=== PATIENT | female | born 1990 | race Caucasian/White ===

== ENCOUNTER 2017-05-01 18:39 | Inpatient (IN) ==
[2017-05-01] MEDS ORDERED: NS 1,000 ML ONE (19:06)
--- NOTE | 2017-05-01 19:55 | Diag Imaging Result Doc PS360 ---
HEAD W/O CONTRAST - 05/01/2017 INDICATION: loc TECHNIQUE: A CT dose reduction protocol was used. COMPARISON: None FINDINGS: The ventricles and sulci are normal in size and contour. No intracranial mass or hemorrhage. The skull is intact. The sinuses mastoids and middle ears are clear. There is excessive patient motion artifact. IMPRESSION: Negative exam. Electronically signed by Porter Malin 05/01/2017 7:52 PM
[2017-05-01] MEDS ORDERED: ROMAZICON IV ONE (19:56)
[2017-05-01] MEDS ORDERED: NS 1,000 ML IV ONE (20:17)
[2017-05-01 20:32] LABS: BLOOD TYPE ARTERIAL; SAMPLE BLOOD
[2017-05-01 20:33] LABS: BE -2.9 mmoll (-3.0-3.0); DRAW SITE R BRACHIAL; METHB 1.3 % (0.0-1.5); O2(CT) 18.6 mL/dL (15.0-23.0); PCO2(98.6) 38 mmHg (35-45); PO2(98.6) 442 mmHg (60-100); SAO2 100.3 % (95.0-100.0); THB 12.7 g/dL (11.5-17.4); pH(98.6) 7.37 (7.35-7.45)
[2017-05-01 20:35] LABS: ALLEN TEST NO; MODALITY AMBU BAG
[2017-05-01 20:49] LABS: UR AMPHETAMINES QUAL NONE DETECTED (NONE DETECT); UR BARBITUATES QUAL NONE DETECTED (NONE DETECT); UR BENZODIAZEPIN QUAL NONE DETECTED (NONE DETECT); UR CANNABINOIDS QUAL NONE DETECTED (NONE DETECT); UR COCAINE QUAL NONE DETECTED (NONE DETECT); UR MDMA QUAL NONE DETECTED (NONE DETECT); UR METHADONE QUAL NONE DETECTED (NONE DETECT); UR METHAMPHETAMINE QUAL PRESUMPTIVE POSITIVE (NONE DETECT); UR OPIATES QUAL NONE DETECTED (NONE DETECT); UR OXYCODONE QUAL NONE DETECTED (NONE DETECT); UR PCP QUAL NONE DETECTED (NONE DETECT); UR TCA QUAL NONE DETECTED (NONE DETECT)
[2017-05-01 21:31] LABS: HEMATOCRIT 37.5 % (37.0-47.0); HEMOGLOBIN 12.6 g/dL (12.0-16.0); MANUAL DIFF NEEDED? NO; MCHC 33.6 g/dL (33-37); MCV 92.4 FL (81-99); RBC 4.06 XMIL (4.2-5.4)
[2017-05-01 21:32] LABS: BASO% 0.2 % (0.0-0.8); EOS# 0.02 X1000 (0.0-0.7); EOS% 0.2 % (0.0-10.0); LYMPH# 3.11 X1000 (1.2-3.4); LYMPH% 36.1 % (20.5-51.1); MONO% 5.8 % (1.7-9.3); MPV 10.5 FL (7.4-10.4); NEUT% 57.5 % (42.2-75.2); PLT 272 X1000 (130-400)
[2017-05-01 21:33] LABS: AGAP 17; BUN 10 mg/dL (8-22); CHLORIDE 97 mmol/L (98-107); COSMO 267; POTASSIUM 3.4 mmol/L (3.5-5.1); SODIUM 134 mmol/L (136-145); TCO2 20 mmol/L (25-35)
[2017-05-01 21:34] LABS: ALKALINE PHOSPHATASE 51 U/L (32-104); GOT 14 U/L (10-30); GPT 8 U/L (10-36)
[2017-05-01 21:39] LABS: PTT PL 20.7 Seconds (22.6-43.9)
[2017-05-01 22:02] LABS: BE -7.4 mmoll (-3.0-3.0); BLOOD TYPE ARTERIAL; DRAW SITE R BRACHIAL; METHB 1.5 % (0.0-1.5); O2(CT) 18.7 mL/dL (15.0-23.0); PCO2(98.6) 31 mmHg (35-45); PO2(98.6) 478 mmHg (60-100); SAMPLE BLOOD; SAO2 100.1 % (95.0-100.0); SRATE 20 BPM; THB 12.7 g/dL (11.5-17.4); pH(98.6) 7.35 (7.35-7.45)
[2017-05-01 22:05] LABS: ALLEN TEST NO; MODALITY BI PAP
[2017-05-02] MEDS ORDERED: ZOFRAN IV PRN (00:21)
[2017-05-02] MEDS ORDERED: ATIVAN PO PRN (08:47)
--- NOTE | 2017-05-02 11:00 | Diag Imaging Result Doc PS360 ---
CHEST-2 VIEWS - 05/02/2017 INDICATION: hypoxia TECHNIQUE: COMPARISON: None FINDINGS: The lungs are normally expanded and clear. Heart size and mediastinal contours are normal. No pneumothorax or pleural effusion. IMPRESSION: Negative exam. Electronically signed by Porter Malin 05/02/2017 10:58 AM
--- NOTE | 2017-05-02 11:01 | Diag Imaging Result Doc PS360 ---
FOOT COMPLETE RIGHT - 05/02/2017 INDICATION: c/o pain in top R foot after fall TECHNIQUE: Three views COMPARISON: FINDINGS: There are minimally displaced fractures of the proximal shafts of the second, third, and fourth metatarsals. No dislocations. Joint spaces are clear. IMPRESSION: Fractures of the second, third, and fourth metatarsals proximally. Electronically signed by Porter Malin 05/02/2017 10:59 AM
[2017-05-02 11:41] VITALS: BP 119/75
--- NOTE | 2017-05-02 17:02 | HISTORY AND PHYSICAL ---
CHIEF COMPLAINT: Unresponsive. HISTORY OF PRESENT ILLNESS: This is a 27-year-old female who presented to the emergency room via EMS after being found unresponsive at [facility]. The patient is unresponsive on arrival. In fact, she is being assisted with ventilations, so history is taken from the EMS report. Evidently she was working out with a friend and she stated that she felt weird and went outside and reportedly dropped to her knees and passed out. We have no further details as the man she was with left before EMS arrived. We are unsure of past medical history or any further events. In the emergency room she was given Narcan as well as Romazicon with no response. Blood pressures was 76/30 on arrival. She was given hydration and dopamine was started. She was admitted to ICU for further evaluation and treatment. PAST MEDICAL HISTORY: Unknown. PAST SURGICAL HISTORY: Unknown. SOCIAL HISTORY: Unknown. ALLERGIES: Unknown. HOME MEDICATIONS: Unknown. REVIEW OF SYSTEMS: Unknown. PHYSICAL EXAMINATION: GENERAL: This is a 27-year-old female who is lying in the bed unresponsive with ventilations being assisted. HEENT: Head is normocephalic, atraumatic. Pupils are 3-4 mm and sluggish to react. CARDIOVASCULAR: Regular rate and rhythm. S1 and S2 appreciated. PULMONARY: Breath sounds are course with BiPAP in use. GASTROINTESTINAL: Abdomen is soft, nondistended, with bowel sounds in all 4 quadrants. EXTREMITIES: No clubbing, cyanosis, or edema. Pulses are palpable x4. NEUROLOGIC: She is unresponsive with respirations with BiPAP in use. DIAGNOSTICS: CT of the head revealed a negative exam. WBC was 8.6 with hemoglobin 12.6, hematocrit 37.5, and platelets of 272,000. D-dimer is 0.22. Sodium is 134, potassium 3.4, BUN 10, creatinine 0.8, with a glucose of 87. Urine drug screen is positive for methamphetamines. Urine test is negative. ASSESSMENT AND PLAN: 1. Unresponsive. 2. The patient will be admitted to ICU. We will continue BiPAP. She will be placed on telemetry. We will continue with IV hydration with neurologic checks every hour. Dictated by JAMIE Mathews for Shade Luna MD cc: JAMIE Mathews MD
--- NOTE | 2017-05-03 12:44 | DISCHARGE SUMMARY ---
ADMISSION DATE: 05/01/2017 DISCHARGE DATE: 05/02/2017 DIAGNOSES: 1. Unresponsive that is resolved. 2. GHB use per patient's admission. 3. Fracture of the 2nd, 3rd and 4th metatarsals proximally on the right. HOSPITAL COURSE: Ms. Lay presented to the emergency room via EMS after being found unresponsive at a local gym. Respirations were assisted. On first arrival she was given Narcan and as well as Romazicon with no response. BiPAP was instituted and she was transferred to ICU for close monitoring. Neuro checks were performed every hour. She did slowly wake up and by this morning she was awake and alert. She stated that she took GHB. Her vital signs were stable. The patient was very hesitant to give any personal information even as far as giving her name and her date. She would not tell where she lived or any personal information even to that point. Chest x-ray was performed this morning which was negative. She was placed in a walking boot and an appointment was made to follow up with Dr. Angulo tomorrow the at 1:30. When the patient was informed of this she stated that she did not want us to make the appointment, that she would have her father assist her in getting Orthopedic follow up. We did tell them that Dr. Angulo recommended that she be seen tomorrow. PHYSICAL EXAMINATION: Cardiovascular: Regular rate and rhythm. S1 and S2 appreciated. Pulmonary: Breath sounds are clear with no increased work of breathing noted. Gastrointestinal: Soft, nontender, nondistended. Bowel sounds in all 4 quadrants. Neurologic: She is alert and oriented x3. Cranial nerves 2-12 grossly intact. Extremities: No clubbing, cyanosis, or edema to arms or left lower extremity. Right lower extremity is edematous and she is in a walking boot. Discharge Vital Signs: Blood pressure is 119/75 with a heart rate of 100, respirations are 18, temperature is 99 degrees with a room air saturations of 100. DISCHARGE ACTIVITY: As tolerated. FOLLOWUP: As stated above, Dr. Angulo May 03 at 1:30 p.m. DISCHARGE MEDICATIONS: None. She has been instructed to stop using GHB. She is discharged home with family members in stable condition. This is a greater than 30 minute discharge. Dictated by JAMIE Mathews for Shade Luna MD cc: JAMIE Mathews MD
--- NOTE | 2017-05-08 22:30 | PROVIDER DOCUMENTATION ---
This chart was entered by Obi Wynne Scribe, acting as scribe for Loyd Gamble MD. HPI-Neurological Disorder - General Chief Complaint: Unresponsive Stated Complaint: UNRESPONSIVENESS Time Seen by Provider: 05/01/17 19:12 Source: EMS Unable to obtain history due to:: other (pt is unresponsive) - History of Present Illness-Neuro Nature of Presenting Problem: 26 yo F presents to the ER via EMS unresponsive. Pt was checked in as a guest at [employer]. She was working out with a friend and states she felt weird and went outside. Pt dropped to her knees and then passed out. EMS found patient unresponsive at the scene and the man she was with left before EMS arrived. Onset/Duration: reports: just prior to arrival Timing: reports: still present Context: reports: found unresponsive by bystander Character of Altered Mental Status: reports: unresponsive Associated Symptoms: reports: other (unresponsive) Similar Symptoms Previously?: No Review of Systems - Adult - REVIEW OF SYSTEMS - ADULT ROS:: unobtainable per condition (pt is unresponsive) Constitutional: denies: chills, fever Respiratory: denies: cough, shortness of breath Musculoskeletal: denies: back pain, neck pain Neurological: reports: see HPI, other (unresponsive) All Other Systems: Reviewed and Negative Past History - Adult - PAST MEDICAL HISTORY-ADULT Review of Records: reports: Old Records Reviewed, Nursing Assessment Review, Medications Reviewed - IMMUNIZATION STATUS Childhood Immunizations: See Nurse Assessment Flu Vaccine: See Nurse Assessment Physical Exam- Neurological - Physical Exam-Neuro Exam Limited by: unresponsive Initial Vital Signs Reviewed: Yes General Appearance: other (unresponsive) Head Injury: no evidence of injury Cardiovascular: normal peripheral pulses, regular rate, rhythm Progress - PLAN OF CARE/RESULTS Progress/Plan/Lab Results: Orders Category Date Time Status Admit - [facility] Routine AdmDCTranf 05/01/17 20:17 Ordered Call Admitting on Arrival AT ADMISSION Care 05/01/17 20:18 Completed Neurological Check Q1h Care 05/01/17 20:17 Completed Vital Signs Order RTQ1H Care 05/01/17 20:18 Completed Z-Document. for Tele Applied ORDERED Care 05/01/17 20:19 Completed HEAD W/O CONTRAST [CT] Stat Exams 05/01/17 19:12 Completed ABG [RESP] Routine Lab 05/01/17 18:27 Completed URINE DRUG SCREEN PL Stat Lab 05/01/17 20:20 Completed 0.9% Sodium Chloride Inj [Ns] 1,000 ml Med 05/01/17 19:06 Discontinued .ROUTE As Directed 0.9% Sodium Chloride Inj [Ns] 1,000 ml Med 05/01/17 20:17 Discontinued IV 150 mls/hr Flumazenil [Romazicon] Med 05/01/17 19:56 Discontinued 0.3 mg IV NOW ONE Oxygen Device Routine Oth 05/01/17 20:18 Completed Telemetry [OM.EQ] Routine Oth 05/01/17 20:17 Active Transfer/Admit Order [TRANSFER] Routine Transfer 05/01/17 20:19 Completed Result Diagrams: 05/01/17 18:30 05/01/17 18:30 - EKG 1 Time of EKG reading by physician:: 18:51 EKG Read and Signed by:: Loyd Gamble EKG Interpretation (*Must complete 3 of following elements*): Normal Rate: 83 Rhythm: NSR [place]: normal QRS: normal ME Interval: normal ST Wave: normal Comments: normal EKG - CT/MRI 1 CT Study: Head Impression: Normal CT Results: negative CT Departure - Departure Date of Disposition Decision: 05/01/17 Time of Disposition Decision: 20:25 DIAGNOSIS: Unresponsive Disposition: ADMITTED INPATIENT 09 Certified Medical Emergency: Emergent Condition: Stable - Critical Care Note This patient required my direct & personal management of CC.: Yes Total Time (mins): 60 Critical Care Statement: This patient required my direct personal management to treat or rule out processes, the absence of which, could potentiallly result in sudden, clinically significant life or limb threatening deterioration. This chart was documented by the indicated scribe, (Obi Wynne Scribe) and accurately reflects the services I performed and decisions made by me, Loyd Gamble MD, as attested by the provider's signature.
== END 2017-05-02 15:12 | disposition home or self-care (01) ==
LOC: P.ED 18:39 → EDBD 20:59 → P.ICU 20:59
PROVIDERS: ATTEND Family Medicine